=== PATIENT | female | born 1985 | race American Indian/Alaskan Native ===

== ENCOUNTER 2020-11-26 14:13 | Emergency (ER) | payer MEDICAID ==
--- NOTE | 2020-11-26 15:41 | XRay Report ---
CHEST 2 VIEWS INDICATION / CLINICAL INFORMATION: chest pain, shortness of breath. COMPARISON: None available. FINDINGS: SUPPORT DEVICES: None. HEART / MEDIASTINUM: No significant abnormality. LUNGS / PLEURA: No significant pulmonary or pleural abnormality. No pneumothorax. ADDITIONAL FINDINGS: No significant additional findings. IMPRESSION: No acute cardiopulmonary abnormality. Signer Name: Jeet Coffey MD Signed: 11/26/2020 3:36 PM Workstation Name: [id number]
[2020-11-26 16:12] LABS: Basophils # (Auto) 0.1 K/mm3 (0.0-0.1); Basophils % (Auto) 0.7 % (0.0-1.8); Eosinophils # (Auto) 0.1 K/mm3 (0.0-0.4); Hematocrit 37.1 % (30.3-42.9); Hemoglobin 12.5 gm/dl (10.1-14.3); Lymphocytes # (Auto) 2.2 K/mm3 (1.2-5.4); Lymphocytes % (Auto) 30.1 % (13.4-35.0); Mean Corpuscular HGB Conc 34 % (30-34); Mean Corpuscular Volume 87 fl (79-97); Monocytes # (Auto) 0.6 K/mm3 (0.0-0.8); Monocytes % (Auto) 8.1 % (0.0-7.3); Platelet Count 228 K/mm3 (140-440); Red Blood Count 4.29 M/mm3 (3.65-5.03); Red Cell Distribution Width 14.7 % (13.2-15.2)
[2020-11-26 16:13] LABS: Alanine Aminotransferase 17 units/L (7-56); Albumin 4.3 g/dL (3.9-5); BUN/Creatinine Ratio 9; Blood Urea Nitrogen 7 mg/dL (7-17); Calcium 8.7 mg/dL (8.4-10.2); Hemolysis Index 1
[2020-11-26] MEDS ORDERED: KETOROLAC 10 MG TAB PO ONE (16:53)
[2020-11-26] MEDS ORDERED: ACETAMINOPHEN W/CODEINE 300-30 MG TAB PO ONE (16:53)
[2020-11-26] MEDS ORDERED: dexAMETHasone 20 MG/5 ML VIAL IM ONE (16:54)
--- NOTE | 2020-11-26 16:55 | Emergency Department Report ---
ED Back Pain/Injury HPI - General Chief Complaint: Back Pain/Injury Stated Complaint: BACK/CHEST PAIN Time Seen by Provider: 11/26/20 16:08 Source: patient Limitations: No Limitations - History of Present Illness Initial Comments: 35-year-old female with no significant past history presents to the ER today complaint of thoracic back pain. Patient states that her back pain start about 7 days ago. 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 She is not sure that is what could have caused the pain. She describes it as a sharp pain that sometimes takes her breath away. She states that it has been intermittent and sometimes radiates into her anterior c hest. She states that it feels like its muscle spasms. She states that is worse to touch, with certain movements and with certain positions. She states that what concerned is that it was not going away despite taking [id number] Motrin, Tylenol, hot baths, massages and topical rubs. She den ies any cough, shortness of breath, nausea, vomiting, abdominal pain, extremity weakness, numbness, tingling, bowel or bladder incontinence, urinary retention or constipation. She is on Depo. She denies any lower extremity swelling or calf pain. MD Complaint: back pain -: Gradual, days(s) (7) - Related Data Previous Rx's Medication Instructions Recorded Last Taken Type Acetaminophen/Codeine [Tylenol 1 tab PO Q4HR PRN #12 tablet 11/26/20 Unknown Rx /Codeine # 3 tab] methOCARBAMOL [Robaxin TAB] 750 mg PO Q8H PRN #30 tablet 11/26/20 Unknown Rx methylPREDNISolone [Medrol 4MG 4 mg PO DAILY #1 tab.ds.pk 11/26/20 Unknown Rx DOSEPAK (21 tabs)] Allergies Allergy/AdvReac Type Severity Reaction Status Date / Time PINEAPPLE Allergy Intermediate Hives Uncoded 04/10/14 12:01 ED Review of Systems ROS: Stated complaint: BACK/CHEST PAIN Other details as noted in HPI Comment: All other systems reviewed and negative ENT: denies: ear pain, throat pain Respiratory: denies: cough, orthopnea, shortness of breath, SOB with exertion, SOB at rest, wheezing Cardiovascular: denies: chest pain, palpitations, dyspnea on exertion, orthopnea, edema, syncope, paroxysmal nocturnal dyspnea Endocrine: no symptoms reported Gastrointestinal: denies: abdominal pain, nausea, vomiting, diarrhea, constipation, hematemesis, melena Genitourinary: denies: urgency, dysuria, frequency, hematuria, discharge, abnormal menses, dyspareunia Musculoskeletal: back pain. denies: joint swelling, arthralgia Neurological: denies: headache, weakness, numbness, paresthesias, confusion, abnormal gait, vertigo Psychiatric: denies: anxiety, depression Hematological/Lymphatic: denies: easy bleeding, easy bruising ED Past Medical Hx - Past Medical History Hx Hypertension: No Hx Asthma: No - Surgical History Additional Surgical History: hernia repair - Social History Smoking Status: Current Every Day Smoker - Medications Home Medications: Home Medications Medication Instructions Recorded Confirmed Last Taken Type Acetaminophen/Codeine [Tylenol 1 tab PO Q4HR PRN #12 tablet 11/26/20 Unknown Rx /Codeine # 3 tab] methOCARBAMOL [Robaxin TAB] 750 mg PO Q8H PRN #30 tablet 11/26/20 Unknown Rx methylPREDNISolone [Medrol 4MG 4 mg PO DAILY #1 tab.ds.pk 11/26/20 Unknown Rx DOSEPAK (21 tabs)] ED Physical Exam - General Limitations: No Limitations ED Course Vital Signs 11/26/20 11/26/20 11/26/20 14:42 17:25 18:33 Temperature 98.4 F 98.4 F 98.4 F Pulse Rate 88 75 75 Respiratory 18 17 17 Rate Blood Pressure 132/88 Blood Pressure 111/75 111/75 [Right] O2 Sat by Pulse 100 100 100 Oximetry ED Medical Decision Making - Lab Data Result diagrams: 11/26/20 15:40 11/26/20 15:40 - EKG Data -: EKG Interpreted by Ia EKG shows normal: sinus rhythm Rate: normal - Radiology Data Radiology results: report reviewed Patient: TWIN ALVAREZ MR#: [id number] : 1985 Acct:[id number] Age/Sex: 35 / F ADM Date: 11/26/20 Loc: ED Attending Dr: Ordering Physician: ANTIONE STRONG Date of Service: 11/26/20 Procedure(s): XR chest routine 2V Accession Number(s): [id number] cc: ANTIONE STRONG Fluoro Time In Minutes: CHEST 2 VIEWS INDICATION / CLINICAL INFORMATION: chest pain, shortness of breath. COMPARISON: None available. FINDINGS: SUPPORT DEVICES: None. HEART / MEDIASTINUM: No significant abnormality. LUNGS / PLEURA: No significant pulmonary or pleural abnormality. No pneumothorax. ADDITIONAL FINDINGS: No significant additional findings. IMPRESSION: No acute cardiopulmonary abnormality. Signer Name: Betsy Coffey MD Signed: 11/26/2020 3:36 PM Workstation Name: [id number] Transcribed By: ZAINA Dictated By: BETSY COFFEY Electronically Authenticated By: BETSY COFFEY Signed Date/Time: 11/26/20 1536 - Medical Decision Making 35-year-old female with no significant past history presents to the ER today complaint of thoracic back pain. Patient states that her back pain start about 7 days ago. 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 She is not sure that is what could have caused the pain. She describes it as a sharp pain that sometimes takes her breath away. She states that it has been intermittent and sometimes radiates into her anterior chest. She states that it feels like its muscle spasms. She states that is worse to touch, with certain movements and with certain positions. She states that what concerned is that it was not going away despite taking [id number] Motrin, Tylenol, hot baths, massages and topical rubs. She denies any cough, shortness of breath, nausea, vomiting, abdominal pain, extremity weakness, numbness, tingling, bowel or bladder incontinence, urinary retention or constipation. She is on Depo. She denies any lower extremity swelling or calf pain Patient currently resting comfortably. She reports some improvement of her pain with meds. CXR shows nothing acute. EKG shows no STEMI/acute ischemic changes, or significant dysrhythmia. CBC and CMP unremarkable. Troponin x2 negative. D-dimer also negative. Patient vital signs have been stable. She is not toxic, or ill-appearing and is neurologically intact with a normal gait. Her pain could be related to upper back spasms/upper back strain. No indication for additional work-up, admission or emergent consult at this time. Discussed lab results, and imaging results with patient. Discussed suspected diagnosis and treatment plan with patient. Patient expressed understanding of instructions and agree with plan. Patient was stable at time of discharge. Critical care attestation.: If time is entered above; I have spent that time in minutes in the direct care of this critically ill patient, excluding procedure time. ED Disposition Clinical Impression: Acute thoracic back pain, Spasm of back muscles, Pleuritic pain Disposition: TO HOME OR SELFCARE Is pt being admited?: No Does the pt Need Aspirin: No Condition: Stable Instructions: Muscle Cramps and Spasms, [id number], Acute Back Pain, Adult, Nonspecific Chest Pain, Adult Additional Instructions: Take the steroids, muscle relaxers and pain medications as prescribed. Follow- up with the primary care doctor listed on your discharge instructions at about 1 week. Return to the ER if your symptoms changes or worsens in any way. Prescriptions: methylPREDNISolone [Medrol 4MG DOSEPAK (21 tabs)] 4 mg PO DAILY #1 tab.ds.pk methOCARBAMOL [Robaxin TAB] 750 mg PO Q8H PRN #30 tablet PRN Reason: Spasms Acetaminophen/Codeine [Tylenol /Codeine # 3 tab] 1 tab PO Q4HR PRN #12 tablet PRN Reason: Pain Referrals: PIETRO DICKINSON MD [Staff Physician] - 3-5 Days Forms: Work/School Release Form(ED) Time of Disposition: 18:20
[2020-11-26 17:25] VITALS: BP 111/75
[2020-11-26 17:40] LABS: Bilirubin,Urine NEG (Negative); Blood,Urine NEG (Negative); Color,Urine Yellow (Yellow); Mucus,Urine FEW /HPF; Protein,Urine <15 mg/dL mg/dL (Negative); Urobilinogen,Urine < 2.0 mg/dL (<2.0)
--- NOTE | 2020-11-27 09:48 | Electrocardiograph Report ---
[facility] Test Date: 2020-11-26 Test Time: 14:53:07 Pat Name: TWIN ALVAREZ Department: Room: Gender: F Civil Engineer Helper: : 1985 Requested By: ANTIONE STRONG Order Number: [id number] Reading MD: Betito Tipton Measurements Intervals [place] Rate: 83 P: 61 DC: 179 QRS: 86 QRSD: 78 T: 50 QT: 352 QTc: 415 Interpretive Statements Sinus rhythm Probable left atrial enlargement No previous ECG available for comparison Electronically Signed On 11-27-2020 6:48:03 PDT by Betito Tipton
== END 2020-11-26 18:33 | disposition home or self-care (01) ==
LOC: ED 14:13
DX: R07.81 Pleurodynia (principal); M54.6 Pain in thoracic spine; M62.830 Muscle spasm of back; R07.89 Other chest pain; F17.200 Nicotine dependence, unspecified, uncomplicated; Z98.890 Other specified postprocedural states; Z79.899 Other long term (current) drug therapy; Z91.018 Allergy to other foods
CPT/HCPCS: 36415; 71046; 80053; 81001; 84484; 84703; 85025; 85379; 93005; 96372; 99284; J1100